=== PATIENT | male | born 1970 | race Two or more races ===

== ENCOUNTER 2024-11-03 17:47 | Emergency (ER) | payer MEDICAID, SELFPAY ==
[2024-11-03 18:20] VITALS: BP 131/77; PULSE 83; RESP 18; TEMP 37.7; O2SAT 95
--- NOTE | 2024-11-03 18:24 | XR_ITS ---
Examination: PA chest single view Technique: Upright PA chest single view Exam date and time: November 03, 2024 1836 hrs. Comparison: May 22, 2021 Indications: Shortness of breath today beginning 2 days ago. Findings: Normal heart size Mild atelectasis in the left lower lobe No pulmonary edema No lobar pneumonia Impression: Minor subsegmental atelectasis left base
--- NOTE | 2024-11-03 18:30 | EDNOTE_ITS ---
ED Asthma RME/HPI General Chief Complaint: Flu Like Symptoms Stated Complaint: COUGH, SOB Time Seen by Provider: 11/03/24 18:24 Arrival date/time: 11/03/24 17:47 54M with history of HTN and asthma (requiring intubation before) presents to ED with 2 days of cough, fevers/chills, and SOB. Patient uses Trelegy as his controller and albuterol as rescue. He ran out of both. Limitations: no limitations Related Data Previous Rx's ?Medication ?Instructions ?Recorded albuterol sulfate 90 mcg/actuation 2 puff inhalation Q ID #8.5 grams 05/22/21 aerosol inhaler fluticasone 100 mcg-salmeterol 50 1 inh inhalation BID #60 ea 05/22/21 mcg/dose blistr powdr for inhalation (Advair Diskus) albuterol sulfate 90 mcg/actuation 2 puff inhalation Q 6H PRN 11/03/24 aerosol inhaler (Ventolin HFA) shortness of breath or wheezing #8.5 grams fluticasone fur. 100 mcg-umeclid 1 inh inhalation QDAY #28 ea 11/03/24 62.5 mcg-vilant 25 mcg inhalat.powder (Trelegy Ellipta) prednisone 50 mg tablet 50 mg PO QDAY 5 days #5 tabs 11/03/24 Allergies Allergy/AdvReac Type Severity Reaction Status Date / Time No Known Allergies Allergy Verified 11/03/24 17:50 Review of Systems Review of Systems Systems Reviewed: All systems reviewed, normal except as documented Constitutional Constitutional: Reports system reviewed and no additional complaints, except as documented, Reports as per HPI, Reports chills, Reports fever(s) and Denies head ache(s) ENT Ears, Nose, Mouth, and Throat: Denies disequilibrium and Denies headache(s) Cardiovascular Cardiovascular: Reports system reviewed and no additional complaints, except as documented, Denies chest pain and Reports dyspnea Respiratory Respiratory: Reports system reviewed and no additional complaints, except as documented, Reports as per HPI, Reports cough and Reports dyspnea Gastrointestinal Gastrointestinal: Reports system reviewed and no additional complaints, except as documented, Denies abdominal pain, Denies nausea and Denies vomiting Neurologic Neurologic: Reports system reviewed and no additional complaints, except as documented, Denies confusion, Denies disequilibrium and Denies headache(s) Psychiatric Psychiatric: Denies confusion Past Medical History Past Medical History NEUROLOGIC: Negative Neurological Disorders CARDIAC: Positive Cardiac Disorders and Hypertension; Negative Congestive Heart Failure RESPIRATORY: Positive Asthma; Negative Chronic Obstructive Pulmonary Disease (COPD) GASTROINTESTINAL: Negative Gastrointestinal Disorders GENITOURINARY: Negative Genitourinary Disorders or Renal Disease MUSCULOSKELETAL: Negative Musculoskeletal Disorders ENDOCRINE: Positive Diabetes Mellitus Type 2; Negative Endocrine Disorders or Diabetes Mellitus Type 1 HEMATOLOGIC: Negative Blood Disorders OTHER HISTORY: Negative Autoimmune Disease or Cancer Family History FAMILY HISTORY: Positive Family Cardiac Disorders Social History SMOKING STATUS: Never smoker SECOND HAND EXPOSURE: No SUBSTANCE USE: does not use ED Exam General Limitations: Present no limitations General appearance: Present alert and in no apparent distress Head Head exam: Present atraumatic Eye Eye exam: Present normal appearance, PERRL and EOMI ENT ENT exam: Present normal exam, normal oropharynx and mucous membranes moist Neck Neck exam: Present normal inspection, full ROM and trachea midline Chest Chest inspection: Present normal inspection and symmetric chest wall rise Expanded Respiratory Exam Location: Right: rales Cardiovascular Cardiovascular exam: Present regular rate, normal rhythm and normal heart sounds Abdominal Exam Abdominal exam: Present soft and normal bowel sounds Extremities Exam Extremities exam: Present normal inspection and full ROM Back Exam Back exam: Present normal inspection and full ROM Neurological Exam Neurological exam: Present alert, oriented X3 and CN II-XII intact Psychiatric Psychiatric exam: Present normal affect and normal mood Skin Skin exam: Present warm, dry, intact and normal color Course Quality Measures none Orders Category Date Time Status Bedside COVID-19 Antigen Test NOW Care 11/03/24 18:24 Active Bedside Influenza A&B Antigen Test NOW Care 11/03/24 18:24 Active XR chest 1V portable Stat Exams 11/03/24 18:24 Ordered Dexamethasone Inj [Decadron Inj] Med 11/03/24 18:24 Once 20 mg PO X1 ONE Ipratropium [place] Rt Vashti [Atrovent Rt [place]] Med 11/03/24 18:24 Once 1 mg INH X1 ONE Levalbuterol Rt [Xopenex Rt Vashti] Med 11/03/24 18:24 Once 5 mg INH X1 ONE Sodium Chloride Rt Vashti 0.9% [NS Rt Vashti 0.9%] Med 11/03/24 18:24 Ordered 3 ml INH PRN PRN Vital Signs Vital signs: Vital Signs Temperature 99.8 F 11/03/24 18:20 Pulse Rate 83 11/03/24 18:20 Respiratory Rate 18 11/03/24 18:20 Blood Pressure 131/77 H 11/03/24 18:20 Pulse Oximetry (%) 95 11/03/24 18:20 Oxygen Delivery Method Room Air 11/03/24 18:20 Asthma MDM Narrative MDM Narrative:: 54M with history of HTN and asthma (requiring intubation before) presents to ED with 2 days of cough, fevers/chills, and SOB. Physical exam reveals prolonged expiration and some crackles on R-side. No obvious wheezing. Patient is afebrile, calm, and alert. Swabs neg. CXR normal. Meds relieved symptoms. Inhaler RX sent. Patient data External records reviewed:: [facility] previous records Clinical information provided by:: patient Social determinants that could affect healthcare access:: none Patient has the following chronic illnesses:: HTN and asthma How is presenting disease/condition affected by chronic disease/condition?: exacerbated by Evaluation data The following diagnostics were reviewed and interpreted by me:: lab results and radiology exam(s) Lab and/or radiology exams considered but not ordered:: ordered Interpretation Summary: above Medications / Prescriptions Medications or Prescriptions considered but not ordered:: ordered Medication administrations:: Medication Administration History Dexamethasone Sodium Phosphate (Dexamethasone Sod Phos Inj 10 Mg/Ml Vial) 20 mg PO X1 ONE Stop: 11/03/24 18:25 Ipratropium [place] (Ipratropium Rt 0.5 Mg/ 2.5 Ml Nebu) 1 mg INH X1 ONE Stop: 11/03/24 18:25 Levalbuterol HCl (Levalbuterol Rt 1.25 Mg/0.5 Ml Nebu) 5 mg INH X1 ONE Stop: 11/03/24 18:25 Sodium Chloride (Sodium Chloride Rt [place] 0.9% 3 Ml Nebu) 3 ml INH PRN PRN PRN Reason: SOLN Stop: 12/03/24 18:23 Consultations Consultation(s) initiated? (list below): No Diagnosis Differential diagnosis asthma: Acute exacerbation, Status asthmaticus, Acute asthmatic bronchitis, PE, Pneumonia, COPD exacerbation, Pulmonary edema systolic, Pulmonary edema dystolic, ARDS, Pneumothorax, Foreign body in trachea and other (URI, CAP) Most likely diagnosis given after review of the tests above:: URI and asthma exacerbation Admission Indicated Admission indicated?: not indicated Admission Request Was there a request for admission?: No Disposition Plan Disposition Plan: Discharge Discharge Attestation Discharge Attestation: The patient and all family members were given an opportunity to ask questions and understood the discharge instructions. Discharge instructions specifically effects, indications for sooner follow up or return to the emergency department, and the expected course of current diagnosis. Patient condition: Stable Discharge Plan Plan Patient Disposition: HOME (Self Care) Disposition Comment: Stable Prescriptions/Referrals Prescriptions/Med Rec: New prednisone 50 mg tablet 50 mg PO QDAY 5 Days Qty: 5 0RF albuterol sulfate [Ventolin HFA] 90 mcg/actuation HFA aerosol inhaler 2 puff inhalation Q6H PRN (Reason: shortness of breath or wheezing) Qty: 8.5 0RF Trelegy Ellipta 100-62.5-25 mcg blister with device 1 inh inhalation QDAY Qty: 28 0RF No Action albuterol sulfate 90 mcg/actuation HFA aerosol inhaler 2 puff inhalation QID Qty: 8.5 0RF fluticasone propion-salmeterol [Advair Diskus] 100-50 mcg/dose blister with device 1 inh inhalation BID Qty: 60 0RF Referrals: No Primary/Family,Physician [Primary Care Provider] - In 1 week Problem List Clinical Impression: Upper respiratory infection, Asthma with exacerbation Patient/Caregiver Discharge Instructions Education Materials: ED Asthma, Acute (Adult), ED URI, Viral, No Abx (Adult) Additional Instructions: Please follow-up with PCP within 24-48 hours and return immediately if symptoms worsen. Ibuprofen/Tylenol can be used simultaneously for greater fever/pain control. Print Language: Citizen Of [place] Stand Alone Forms: Patient Portal Info Letter RAMOS/PETER Supervising Physician LANA Supervising Physician: Dr. Nye
[2024-11-03] MEDS: IPRATROPIUM RT 0.5 MG/ 2.5 ML NEBU 1 MG INH (18:42)
[2024-11-03] MEDS: DEXAMETHASONE SOD PHOS INJ 10 MG/ML VIAL 20 MG PO (18:47)
[2024-11-03 18:56] VITALS: PULSE 81
[2024-11-03] MEDS: ALBUTEROL RT 2.5 MG/0.5 ML NEBU 5 MG INH (18:56)
[2024-11-03 19:02] VITALS: PULSE 85; RESP 20; O2SAT 96
[2024-11-03 20:16] VITALS: BP 113/66; PULSE 84; RESP 20; TEMP 36.7; O2SAT 93
[2024-11-03] MEDS: SODIUM CHLORIDE RT SOL 0.9% 3 ML NEBU INH (20:50)
[2024-11-03] MEDS: LEVALBUTEROL RT 1.25 MG/0.5 ML NEBU 5 MG INH (20:50)
[2024-11-03 20:51] VITALS: PULSE 82; RESP 20; O2SAT 96
[2024-11-03 23:06] VITALS: BP 118/69; PULSE 82; RESP 17; TEMP 36.9; O2SAT 96
== END 2024-11-03 23:14 | disposition home or self-care (01) ==
PROVIDERS: Emergency Provider Emergency Medicine
DX: J06.9 Acute upper respiratory infection, unspecified (principal); J45.901 Unspecified asthma with (acute) exacerbation; I10 Essential (primary) hypertension
CPT/HCPCS: 71045; 87400; 87811; 94640; 94644; 99284; J1100